=== PATIENT | male | born 1975 | race Caucasian/White ===

== ENCOUNTER 2017-05-28 13:34 | Emergency (ER) | payer MEDICAID ==
[2017-05-28 13:48] VITALS: BP 125/91; PULSE 89; RESP 18; TEMP 98.4; O2SAT 96
[2017-05-28] MEDS ORDERED: Albuterol-Ipratrop 3 mg / 0.5 (3 ml) UD IH STA (14:04)
--- NOTE | 2017-05-28 14:15 | RAD ---
HISTORY: COMPARISON: No prior. TECHNIQUE: Chest PA and lateral FINDINGS: LINES AND TUBES: None. LUNG AND PLEURA: The lungs are well inflated and clear. There is a calcified granuloma in the left upper lobe and lung base. HEART AND MEDIASTINUM: The heart is not enlarged. The hilar and mediastinal contours are within normal limits. SKELETAL STRUCTURES: There is severe S-shaped scoliosis in the thoracolumbar spine. VISUALIZED UPPER ABDOMEN: Normal. OTHER FINDINGS: None. IMPRESSION: No active pulmonary disease.
[2017-05-28] MEDS ORDERED: Albuterol-Ipratrop 3 mg / 0.5 (3 ml) UD ONE (14:22)
--- NOTE | 2017-05-28 14:43 | C.PDOC ---
History Of Present Illness 41 year old male with a history of Asthma presents to the ED for evaluation of cold symptoms that began "a few weeks ago." Patient reports cough has worsened over the last few days with increased production of yellow sputum and associated chest tightness. Patient admits to smoking cigarettes. Patient denies fever, chills, headache, drooling, shortness of breath, wheezing, or other complaints at this time. Time Seen by Provider: 05/28/17 13:53 Chief Complaint (Nursing): Cough, Cold, Congestion History Per: Patient History/Exam Limitations: no limitations Onset/Duration Of Symptoms: Days (" few weeks" ), Worse Since ("few days") Current Symptoms Are (Timing): Still Present Sick Contacts (Context): None Associated Symptoms: Cough, Sputum. denies: Vomiting, Diarrhea Recent travel outside of the [place]: No Past Medical History Reviewed: Historical Data, Nursing Documentation, Vital Signs Vital Signs: Last Vital Signs Temp 98.4 F 05/28/17 13:45 Pulse 89 05/28/17 13:45 Resp 18 05/28/17 13:45 BP 125/91 H 05/28/17 13:45 Pulse Ox 96 05/28/17 14:49 Family History: States: Unknown Family Hx - Social History Hx Alcohol Use: Yes Hx Substance Use: No - Immunization History Hx Tetanus Toxoid Vaccination: No Hx Influenza Vaccination: No Hx Pneumococcal Vaccination: No Review Of Systems Constitutional: Negative for: Fever, Chills Cardiovascular: Positive for: Other (chest tightness) Respiratory: Positive for: Cough, Sputum. Negative for: Shortness of Breath, Wheezing Gastrointestinal: Negative for: Nausea, Vomiting, Abdominal Pain, Diarrhea Physical Exam - Physical Exam Appears: Non-toxic, No Acute Distress Skin: Warm, Dry, No Rash Head: Normacephalic, No Tenderness Eye(s): bilateral: PERRL Ear(s): Bilateral: Normal Nose: No Flaring, Discharge (scant clear with B/L congestion) Oral Mucosa: Moist, No Drooling Throat: No Erythema, No Drooling Neck: Trachea Midline, Supple Chest: Symmetrical, No Deformity Cardiovascular: Rhythm Regular, No Murmur Respiratory: No Decreased Breath Sounds, No Accessory Muscle Use, No Rales, No Rhonchi, Wheezing (right base scattered wheezing) Gastrointestinal/Abdominal: Soft, No Tenderness, No Distention, No Guarding, No Rebound Extremity: Normal ROM, No Pedal Edema Neurological/Psych: Oriented x3, Normal Speech ED Course And Treatment O2 Sat by Pulse Oximetry: 96 (RA) Pulse Ox Interpretation: Normal - Radiology CXR: Interpreted by Me, Viewed By Me CXR Interpretation: Yes: No Acute Disease Progress Note: Patient was given Duoneb, Zithromax, and prednisone. CXR was ordered. On re-evAl, pt is afebrile, hemodynamicalys table. non-toxic. Ambulatory in ED with stable gait. PulsEOx 96% RA. ENT: no acute findings. Neck: SUpple, (-) meningeal sign, (-) JVD, (-) carotid bruits. Lungs: CTA B/L, BS equal B/L. Abd: benign. Neuorlogicaly intact. CXR review , normal study. results review and discussed with pt. Bicycle Inspector dvised and ref. to F/u with PMD in 2- 3 days for re-eavl. return to ED if any worsening or new changes. Disposition Counseled Patient/Family Regarding: Diagnosis, Need For Followup, Rx Given - Disposition Referrals: [facility] [Outside] Disposition: HOME/ ROUTINE Disposition Time: 14:50 Condition: STABLE Prescriptions: Albuterol HFA [Ventolin HFA 90 mcg/actuation (8 g)] 1 puff IH Q6 #1 inhaler Azithromycin 1 tab PO DAILY #4 tab Prednisone [Deltasone] 40 mg PO DAILY #6 tablet Instructions: Acute Bronchitis (ED), COPD (Chronic Obstructive Pulmonary Disease) (ED) Forms: [employer] (Hungarian) - Clinical Impression Clinical Impression: Bronchitis, COPD (chronic obstructive pulmonary disease) - 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 - Scribe Statement The provider has reviewed the documentation as recorded by the Scribe Alyssa Larsen All medical record entries made by the Scribe were at my direction and personally dictated by me. I have reviewed the chart and agree that the record accurately reflects my personal performance of the history, physical exam, medical decision making, and the department course for this patient. I have also personally directed, reviewed, and agree with the discharge instructions and disposition.
== END 2017-05-28 14:56 | disposition home or self-care (01) ==
LOC: C.ER 13:34
DX: J44.9 Chronic obstructive pulmonary disease, unspecified (principal); F17.210 Nicotine dependence, cigarettes, uncomplicated